=== PATIENT | male | born 1990 ===

== ENCOUNTER 2016-09-04 22:28 | Emergency (ER) | payer SELFPAY ==
[~2016-09-04] VITALS: Ht 185.4 cm; Wt 70.3 kg
[2016-09-04] MEDS: CLINDAMYCIN 150 MG CAP PO ONE ×2 (23:30→23:35)
[2016-09-04] MEDS: predniSONE 20 MG TAB PO ONE ×2 (23:30→23:34)
[2016-09-04] MEDS: diphenhydrAMINE 50 MG CAP PO ONE ×2 (23:30→23:35)
[2016-09-04] MEDS ORDERED: BENA25CA4 PO (23:31)
[2016-09-04] MEDS ORDERED: CLEO300C2 PO (23:31)
[2016-09-04] MEDS ORDERED: PRED20TA PO (23:31)
[2016-09-04 23:41] VITALS: BP 138/72
== END 2016-09-04 23:43 | disposition home or self-care (01) ==
LOC: M ED 22:28
DX: L03.113 Cellulitis of right upper limb (principal); F17.210 Nicotine dependence, cigarettes, uncomplicated

== ENCOUNTER → 2025-01-02 | Outpatient (REF) ==
[~2025-01-02] MED LIST: BENA25CA4 PO; CLEO300C2 PO; PRED20TA PO
== END ==
LOC: M LAB 13:52
PROVIDERS: ATTEND Family Medicine
DX: Z01.89 Encounter for other specified special examinations (principal)